=== PATIENT | female | born 2000 | race Hispanic/Latino ===

== ENCOUNTER 2024-03-10 03:48 | Emergency (ER) | payer BC, MEDICAID ==
[~2024-03-10] VITALS: Ht 154.9 cm; Wt 79.8 kg
[2024-03-10] MEDS: DiphenhydrAMINE HCL 50 MG/ML VIAL IV ONE ×2 (04:27→06:46)
[2024-03-10] MEDS: ZOSYN 3.375GM +NS 50ML IVPB SCH (04:27)
[2024-03-10] MEDS: Solu-medROL 125MG VIAL IVP ONE (04:27)
[2024-03-10 05:05] LABS: CREATININE 0.8 mg/dL (0.5-1.0); POTASSIUM 3.5 mmol/L (3.5-5.1)
[2024-03-10] MEDS ORDERED: IOHEXOL-350 75 ML VIAL IV ONE (05:40)
[2024-03-10] MEDS: FAMOTIDINE 20MG VIAL IV ONE (06:46)
[2024-03-10] MEDS: VANCOMYCIN KIT 1 GM/250 ML IV.KIT IV ONE (07:52)
[2024-03-10 08:29] LABS: MEAN CORPUSCULAR HEMOGLOBIN 30.5 pg (27.0-33.0); MEAN CORPUSCULAR HGB CONC 33.9 g/dL (32.0-36.0); MEAN CORPUSCULAR VOLUME 89.9 fL (79-99); PLATELET COUNT (AUTO) 259 K/uL (130-400); RED BLOOD CELL COUNT(AUTO) 4.56 MIL/uL (4.00-5.50); RED CELL DISTRIBUTION WIDTH 12.1 % (11.0-15.5); WHITE BLOOD COUNT (AUTO) 8.3 K/uL (4.8-10.8)
[2024-03-10 09:58] LABS: EOSINOPHILS % (MANUAL) 5 % (1-6); LYMPHOCYTES % (MANUAL) 35 % (22-44); MONOCYTES % (MANUAL) 7 % (2-9); REACTIVE LYMPHOCYTES 20 % (0-0); SEGMENTED NEUTROPHILS % 33 % (40-70); TOTAL CELLS COUNTED 100
[2024-03-10 09:59] LABS: MAN.DIFF COMMENT-IMPRESSION MANUAL DIFFERENTIAL; PLATELET MORPHOLOGY COMMENT ADEQUATE
[2024-03-10 10:19] VITALS: BP 119/81; PULSE 97; RESP 16; TEMP 98.1; O2SAT 97
[2024-03-10] MEDS ORDERED: AMOX1TAB16 PO (10:45)
== END 2024-03-10 11:17 | disposition home or self-care (01) ==
LOC: EDH 03:48
DX: L03.213 Periorbital cellulitis (principal); Z91.040 Latex allergy status
CPT/HCPCS: 99284; 96365; 70481; 96375; 96367; 96366; 84443; 80048; 85025; 81025; 36415; 96376; J1200 ×2; J3490; J2919; J2543; J3370; Q9967